=== PATIENT | male | born 1980 | race Caucasian/White ===

== ENCOUNTER 2023-01-24 10:50 | Emergency (ER) | payer BC, SELFPAY ==
[~2023-01-24] VITALS: Ht 170.2 cm; Wt 106.8 kg
[2023-01-24 11:17] VITALS: BP 183/84
[2023-01-24 11:20] VITALS: O2SAT 96
[2023-01-24 12:29] VITALS: TEMP 96.9
== END 2023-01-24 12:25 | disposition home or self-care (01) ==
LOC: M ED 10:50 → EDBD 10:50 → M ED 12:25
DX: T69.8XXA Other specified effects of reduced temperature, initial encounter (principal); V91.89XA Other injury due to other accident to unspecified watercraft, initial encounter; Y92.828 Other wilderness area as the place of occurrence of the external cause; Y93.89 Activity, other specified